=== PATIENT | female | born 1960 | race Caucasian/White ===

== ENCOUNTER 2019-11-11 14:23 | Inpatient (IN) ==
[2019-11-11 14:58] LABS: Basophils % 0.2 %; Eosinophils % 0.2 %; Hemoglobin 16.4 g/dL (11.5-15.4); Immature Granulocytes % 0.3 % (0-4); Lymphocytes # 3.5 K/mcL (0.6-4.6); Lymphocytes % 32.2 %; Mean Corpuscular HGB Conc 34.2 g/dL (31.6-35.5); Mean Corpuscular Hemoglobin 31.4 pg (28.0-33.3); Mean Corpuscular Volume 91.8 fL (83.0-100.0); Mean Platelet Volume 10.1 fL (9.4-12.4); Monocytes # 0.6 K/mcL (0.0-1.3); Monocytes % 5.6 %; Neutrophils # 6.6 K/mcL (1.6-8.9); Platelet Count 250 K/mcL (140-400); Red Blood Count 5.23 M/mcL (3.82-4.97); Red Cell Distribution Width 13.2 % (11.5-14.5); Segmented Neutrophils % 61.5 %; White Blood Count 10.8 K/mcL (4.3-11.1)
[2019-11-11 15:03] LABS: Bilirubin,Urine Negative (Negative); Blood,Urine Negative (Negative); Clarity,Urine Clear (Clear); Color,Urine Yellow (Yellow); Glucose,Urine (UA) Normal (Normal); Ketones,Urine Negative (Negative); Leukocyte Esterase,Urine Negative (Negative); Nitrite,Urine Negative (Negative); PH,Urine 6.5 pH Units (5.0-8.0); Protein,Urine Negative (Neg-Trace); Specific Gravity,Urine 1.005 (1.010-1.025); Urobilinogen,Urine Normal (Normal)
[2019-11-11 15:14] LABS: BUN/Creatinine Ratio 4 (6-26); Blood Urea Nitrogen 3 mg/dL (6-20); Calcium 9.9 mg/dL (8.6-10.3); Carbon Dioxide 27 mEq/L (23-29); Chloride 103 mEq/L (98-107); Glucose 118 mg/dL (70-105); Osmolality,Calculated 288 (280-300); Potassium 3.4 mEq/L (3.5-5.1); Sodium 140 mEq/L (136-145); eGFR For African Americans > 60 (> 60); eGFR For Non-African Americans > 60 (> 60)
[2019-11-11 15:15] LABS: Troponin I < 0.03 ng/mL (< 0.04)
[2019-11-11] MEDS ORDERED: Potassium Chloride Elixir 20 MEQ/15 ML UDC PO ONE (16:08)
[2019-11-11] MEDS ORDERED: hydrALAZINE 10 MG TABLET PO ONE (16:09)
[2019-11-11] MEDS ORDERED: Acetaminophen 325 MG TABLET PO PRN (16:38)
[2019-11-11] MEDS ORDERED: Naloxone 0.4 MG/ML INJ IVP PRN (16:38)
[2019-11-11] MEDS ORDERED: Gadolinium Contrast Agent (WT Based) IV PRN ×2 (18:59→19:04)
[2019-11-11] MEDS: lamoTRIgine 100 MG TABLET PO SCH (20:29)
[2019-11-11] MEDS: Sennosides/Docusate Sodium TABLET PO SCH (20:29)
[2019-11-11] MEDS: Ringers Solution, Lactated 1,000 ML IVC SCH (20:30)
[2019-11-12] MEDS: Ondansetron 4 MG/2 ML VIAL IVP PRN ×2 (00:21→08:03)
[2019-11-12] MEDS: *HR* OxyCODONE Immed Rel 5 MG TABLET PO PRN ×2 (00:21→11:38)
[2019-11-12 00:59] LABS: Basophils % 0.4 %; Eosinophils # 0.1 K/mcL (0.0-0.6); Hematocrit 40.5 % (35.3-44.9); Hemoglobin 13.2 g/dL (11.5-15.4); Immature Granulocytes % 0.2 % (0-4); Lymphocytes # 5.1 K/mcL (0.6-4.6); Lymphocytes % 50.1 %; Mean Corpuscular HGB Conc 32.6 g/dL (31.6-35.5); Mean Corpuscular Hemoglobin 31.1 pg (28.0-33.3); Mean Corpuscular Volume 95.5 fL (83.0-100.0); Mean Platelet Volume 10.1 fL (9.4-12.4); Monocytes # 0.6 K/mcL (0.0-1.3); Monocytes % 5.9 %; Neutrophils # 4.4 K/mcL (1.6-8.9); Platelet Count 208 K/mcL (140-400); Red Blood Count 4.24 M/mcL (3.82-4.97); Red Cell Distribution Width 13.3 % (11.5-14.5); Segmented Neutrophils % 42.4 %; White Blood Count 10.3 K/mcL (4.3-11.1)
[2019-11-12 01:18] LABS: BUN/Creatinine Ratio 4 (6-26); Blood Urea Nitrogen 3 mg/dL (6-20); Calcium 8.8 mg/dL (8.6-10.3); Carbon Dioxide 30 mEq/L (23-29); Chloride 106 mEq/L (98-107); Glucose 110 mg/dL (70-105); Magnesium 1.9 mg/dL (1.6-2.6); Osmolality,Calculated 291 (280-300); Potassium 3.6 mEq/L (3.5-5.1); Sodium 142 mEq/L (136-145); eGFR For African Americans > 60 (> 60); eGFR For Non-African Americans > 60 (> 60)
[2019-11-12 01:32] LABS: Thyroid Stimulating Hormone 1.334 mcIU/mL (0.340-5.600)
[2019-11-12] MEDS: Ringers Solution, Lactated 1,000 ML IVC SCH ×2 (06:31→20:53)
[2019-11-12 08:44] LABS: Estimated Average Glucose 123 mg/dl
[2019-11-12] MEDS: Cholecalciferol (D-3) 1,000 UNIT (25MCG) TABLET PO SCH (08:45)
[2019-11-12] MEDS: ARIPiprazole 10 MG TABLET PO SCH (08:45)
[2019-11-12] MEDS: Cyanocobalamin (B-12) 1,000 MCG TABLET PO SCH (08:46)
[2019-11-12] MEDS: Sennosides/Docusate Sodium TABLET PO SCH ×2 (08:46→20:53)
[2019-11-12] MEDS ORDERED: *HR* LORazepam 2 MG/ML VIAL IVP ONE (12:20)
[2019-11-12] MEDS ORDERED: *HR* FentaNYL PATCH 12 MCG PATCH TD SCH ×2 (15:00→18:00)
[2019-11-12] MEDS: lamoTRIgine 100 MG TABLET PO SCH (20:54)
[2019-11-13] MEDS: Ondansetron 4 MG/2 ML VIAL IVP PRN ×2 (06:26→18:31)
[2019-11-13 06:31] LABS: Basophils % 0.3 %; Eosinophils # 0.1 K/mcL (0.0-0.6); Eosinophils % 0.9 %; Hematocrit 39.5 % (35.3-44.9); Hemoglobin 12.8 g/dL (11.5-15.4); Immature Granulocytes % 0.2 % (0-4); Lymphocytes # 4.4 K/mcL (0.6-4.6); Lymphocytes % 48.9 %; Mean Corpuscular HGB Conc 32.4 g/dL (31.6-35.5); Mean Corpuscular Volume 95.6 fL (83.0-100.0); Mean Platelet Volume 10.6 fL (9.4-12.4); Monocytes # 0.5 K/mcL (0.0-1.3); Monocytes % 5.8 %; Neutrophils # 3.9 K/mcL (1.6-8.9); Platelet Count 198 K/mcL (140-400); Red Blood Count 4.13 M/mcL (3.82-4.97); Red Cell Distribution Width 13.3 % (11.5-14.5); Segmented Neutrophils % 43.9 %; White Blood Count 8.9 K/mcL (4.3-11.1)
[2019-11-13] MEDS: *HR* OxyCODONE Immed Rel 5 MG TABLET PO PRN ×3 (06:31→22:30)
[2019-11-13 06:51] LABS: BUN/Creatinine Ratio 6 (6-26); Blood Urea Nitrogen 4 mg/dL (6-20); Carbon Dioxide 30 mEq/L (23-29); Chloride 104 mEq/L (98-107); Glucose 99 mg/dL (70-105); Magnesium 1.7 mg/dL (1.6-2.6); Osmolality,Calculated 291 (280-300); Potassium 3.7 mEq/L (3.5-5.1); Sodium 142 mEq/L (136-145); eGFR For African Americans > 60 (> 60); eGFR For Non-African Americans > 60 (> 60)
[2019-11-13] MEDS: Cholecalciferol (D-3) 1,000 UNIT (25MCG) TABLET PO SCH (07:56)
[2019-11-13] MEDS: ARIPiprazole 10 MG TABLET PO SCH (07:56)
[2019-11-13] MEDS: Sennosides/Docusate Sodium TABLET PO SCH ×2 (07:57→21:19)
[2019-11-13] MEDS: Cyanocobalamin (B-12) 1,000 MCG TABLET PO SCH (07:57)
[2019-11-13] MEDS: Ringers Solution, Lactated 1,000 ML IVC SCH ×3 (07:59→18:30)
[2019-11-13] MEDS: lamoTRIgine 100 MG TABLET PO SCH (21:19)
[2019-11-14] MEDS: *HR* OxyCODONE Immed Rel 5 MG TABLET PO PRN ×3 (03:27→21:13)
[2019-11-14] MEDS: Ringers Solution, Lactated 1,000 ML IVC SCH (04:53)
[2019-11-14 05:42] LABS: BUN/Creatinine Ratio 4 (6-26); Blood Urea Nitrogen 3 mg/dL (6-20); Calcium 9.4 mg/dL (8.6-10.3); Carbon Dioxide 32 mEq/L (23-29); Chloride 103 mEq/L (98-107); Glucose 91 mg/dL (70-105); Magnesium 1.7 mg/dL (1.6-2.6); Osmolality,Calculated 290 (280-300); Phosphorous 4.3 mg/dL (2.7-4.5); Potassium 3.5 mEq/L (3.5-5.1); Sodium 142 mEq/L (136-145); eGFR For African Americans > 60 (> 60); eGFR For Non-African Americans > 60 (> 60)
[2019-11-14] MEDS: Sennosides/Docusate Sodium TABLET PO SCH ×2 (08:22→21:13)
[2019-11-14] MEDS: ARIPiprazole 10 MG TABLET PO SCH (08:22)
[2019-11-14] MEDS: Cyanocobalamin (B-12) 1,000 MCG TABLET PO SCH (08:22)
[2019-11-14] MEDS: Cholecalciferol (D-3) 1,000 UNIT (25MCG) TABLET PO SCH (08:22)
[2019-11-14] MEDS ORDERED: Isovue-370 500 ML BOTTLE IVP ONE (11:35)
[2019-11-14] MEDS: Ondansetron 4 MG/2 ML VIAL IVP PRN (21:03)
[2019-11-14] MEDS: lamoTRIgine 100 MG TABLET PO SCH (21:13)
[2019-11-15] MEDS: *HR* OxyCODONE Immed Rel 5 MG TABLET PO PRN (04:14)
[2019-11-15] MEDS: Ondansetron 4 MG/2 ML VIAL IVP PRN (05:22)
[2019-11-15 06:11] LABS: BUN/Creatinine Ratio 6 (6-26); Blood Urea Nitrogen 5 mg/dL (6-20); Calcium 9.2 mg/dL (8.6-10.3); Carbon Dioxide 30 mEq/L (23-29); Chloride 104 mEq/L (98-107); Glucose 98 mg/dL (70-105); Magnesium 1.9 mg/dL (1.6-2.6); Osmolality,Calculated 285 (280-300); Phosphorous 4.4 mg/dL (2.7-4.5); Potassium 3.6 mEq/L (3.5-5.1); Sodium 139 mEq/L (136-145); eGFR For African Americans > 60 (> 60); eGFR For Non-African Americans > 60 (> 60)
[2019-11-15 07:19] VITALS: BP 104/56
[2019-11-15] MEDS: Cyanocobalamin (B-12) 1,000 MCG TABLET PO SCH (08:58)
[2019-11-15] MEDS: Cholecalciferol (D-3) 1,000 UNIT (25MCG) TABLET PO SCH (08:58)
[2019-11-15] MEDS: ARIPiprazole 10 MG TABLET PO SCH (08:58)
[2019-11-15] MEDS: Sennosides/Docusate Sodium TABLET PO SCH (08:58)
[2019-11-15] MEDS ORDERED: Aspirin 81 MG TAB.CHEW PO SCH (14:50)
== END 2019-11-15 15:10 | disposition home health service (06) | DRG 57 ==
LOC: EMEROOARM 14:23 → 3BNU 14:23 → SUATTDRO 16:17 → 3BNU 18:00
PROVIDERS: ADMIT Pharmacist; ATTEND Internal Medicine